=== PATIENT | female | born 1955 ===

== ENCOUNTER 2020-10-11 09:00 | Inpatient (IN) | payer OTHER ==
[~2020-10-11] VITALS: Ht 149.9 cm; Wt 68.0 kg
[2020-10-11] MEDS ORDERED: ZESTRIL40 M1 PO (10:18)
[2020-10-11] MEDS ORDERED: TRENTAL PO (10:19)
[2020-10-11] MEDS ORDERED: NORVASC5 MG PO (10:19)
[2020-10-11] MEDS ORDERED: LIPITOR40 MG PO (10:19)
[2020-10-19] MEDS ORDERED: PENTOXIFYLLINE400 MG PO (08:06)
[2020-10-20] MEDS ORDERED: ELIQUIS2.5 MG PO (12:48)
[2020-10-20] MEDS ORDERED: DUI500 PO (12:48)
[2020-10-20] MEDS ORDERED: PERCOCET 5-3251 EACH PO (12:48)
== END 2020-10-20 18:40 | DRG 470 ==
LOC: O/R 10-18 05:19 → SURH 10-18 05:19 → O/R 10-18 09:00 → SURH 10-18 10:05 → O/R 10-18 19:00 → SURH 10-20 18:40
PROVIDERS: ADMIT Orthopaedic Surgery; ATTEND Orthopaedic Surgery
PROC: 0SRC0J9 Replacement of Right Knee Joint with Synthetic Substitute, Cemented, Open Approach (ICD-10-PCS; principal; 2020-10-18 19:00)
DX: M17.11 Unilateral primary osteoarthritis, right knee (principal); D62 Acute posthemorrhagic anemia; I10 Essential (primary) hypertension

== ENCOUNTER 2024-02-04 07:30 | Inpatient (IN) | payer OTHER ==
[~2024-02-04 07:30] MED LIST: DUI500 PO; ELIQUIS2.5 MG PO; LIPITOR40 MG PO; NORVASC5 MG PO; PENTOXIFYLLINE400 MG PO; PERCOCET 5-3251 EACH PO; TRENTAL PO; ZESTRIL40 M1 PO
[2024-02-04 08:35] LABS: HEMATOCRIT 39.1 % (36.0-45.00); HEMOGLOBIN 12.9 g/dL (12.0-15.00); MEAN CORPUSCULAR HGB CONC 32.9 g/dl (32.0-36.0); PLATELET COUNT 239 K/uL (150-450); RED BLOOD COUNT 4.59 M/uL (4.00-6.00); RED CELL DISTRIBUTION WIDTH 14.4 % (11.5-14.5)
[2024-02-04 08:47] LABS: PH,URINE 6.5 (5.0-8.0); URINE APPEARANCE Clear; URINE BILIRRUBIN Negative (NEGATIVE); URINE BLOOD Negative; URINE COLOR Yellow; URINE GLUCOSE Negative (NEGATIVE); URINE KETONE Negative (NEGATIVE); URINE LEUKOCYTE Negative; URINE NITRATE Negative; URINE PROTEIN Negative (NEGATIVE); URINE UROBILINOGEN 0.2 E.U./dl
[2024-02-04 08:48] LABS: URINE BACTERIA 8.8 uL (0.0-1933); URINE EPITHELIAL CELLS 1.9 uL (0.0-38.8); URINE RBC 2.1 uL (0.0-20.8); URINE WBC 2.1 uL (0.0-23.2)
[2024-02-04 09:15] LABS: INR 0.94; PARTIAL THROMBOPLASTIN TIME 26.7 SECONDS (22.0-34.0); PROTHROMBIN TIME 10.3 SECONDS (9.0-11.5)
[2024-02-04 09:22] LABS: ALBUMIN 4.2 gm/dL (3.4-5.0); BILIRUBIN TOTAL 0.9 mg/dL (0.3-1.2); CALCIUM 9.2 mg/dL (8.5-10.1); CREATININE SERUM 0.54 mg/dL (0.55-1.02); GFR 112.61; GLOBULINA 3.4 G/DL (2.4-3.5); POTASSIUM 4.99 mEq/L (3.5-5.1); TOTAL PROTEIN 7.6 gm/dL (6.4-8.2)
[2024-02-11] MEDS ORDERED: CEFAZOLIN SODIUM 1,000 MG VIAL ONE ×2 (06:17→07:11)
[2024-02-11] MEDS ORDERED: KETOROLAC TROMETHAMINE 30 MG VIAL ONE (07:09)
[2024-02-11] MEDS ORDERED: POVIDONE-IODINE 118 ML BOTT TOP ONE (07:10)
[2024-02-11] MEDS ORDERED: LIDOCAINE HCL 1%/EPINEPHRINE 20ML VIAL IJ ONE (07:10)
[2024-02-11] MEDS ORDERED: BUPIVACAINE HCL/Mpf 0.5% 10ML VIAL ONE (07:10)
[2024-02-11] MEDS ORDERED: TRANEXAMIC ACID 100MG/1ML (1000MG) AMPUL IV ONE ×2 (07:11→10:15)
[2024-02-11] MEDS ORDERED: MORPHINE SULFATE 4 MG/ML CARTRIDGE IV PRN (09:45)
[2024-02-11] MEDS ORDERED: OxyCODONE HCL 5 MG TABLET (ROXICODONE) PO PRN (09:45)
[2024-02-11] MEDS ORDERED: ONDANSETRON HCL 2 MG/ML VIAL IV PRN (09:45)
[2024-02-11] MEDS ORDERED: SODIUM CHLORIDE 0.45 % 1,000 ML IV SCH (09:45)
[2024-02-11] MEDS ORDERED: MORPHINE SULFATE 4 MG/ML CARTRIDGE IV ONE (10:15)
[2024-02-11] MEDS ORDERED: MORPHINE SULFATE 4 MG/ML VIAL IV ONE ×2 (11:00→11:30)
[2024-02-11] MEDS ORDERED: ACETAMINOPHEN 500 MG GEL..CAP PO SCH (12:00)
[2024-02-11] MEDS ORDERED: APIXABAN 2.5 MG TABLET PO SCH (17:00)
[2024-02-11] MEDS ORDERED: GABAPENTIN 300 MG CAPSULE PO SCH (17:00)
[2024-02-11] MEDS ORDERED: CEFAZOLIN SODIUM 1,000 MG VIAL IV SCH (17:00)
[2024-02-12 06:51] LABS: HEMATOCRIT 34.8 % (36.0-45.00); HEMOGLOBIN 11.5 g/dL (12.0-15.00); MEAN CELL VOLUME 84.8 fL (80.00-100.00); MEAN CORPUSCULAR HEMOGLOBIN 28.1 pg (27.00-32.0); MEAN CORPUSCULAR HGB CONC 33.1 g/dl (32.0-36.0); PLATELET COUNT 194 K/uL (150-450); RED BLOOD COUNT 4.11 M/uL (4.00-6.00); RED CELL DISTRIBUTION WIDTH 14.2 % (11.5-14.5)
[2024-02-12] MEDS ORDERED: SENNOSIDES 1 TAB TABLET PO SCH (09:00)
[2024-02-12] MEDS ORDERED: DUI500 PO (09:39)
[2024-02-12] MEDS ORDERED: PERCOCET 5-3251 EACH PO (09:39)
[2024-02-12] MEDS ORDERED: ELIQUIS2.5 MG PO (09:41)
[2024-02-12] MEDS ORDERED: ENALAPRILAT DIHYDRATE 1.25 MG/ML VIAL IV PRN (13:00)
[2024-02-12] MEDS ORDERED: LISINOPRIL 40 MG TABLET PO ONE (14:00)
[2024-02-12] MEDS ORDERED: VITAMIN B COMPLEX 1 EACH PO SCH (17:46)
[2024-02-12] MEDS ORDERED: SOD FERRIC GLUC COMPLX/SUCROSE 62.5 MG/5 ML AMPUL IV SCH (17:46)
[2024-02-12] MEDS ORDERED: Cyanocobalamin/Mecobalamin 1 TAB.SL SL SCH (17:46)
[2024-02-13] MEDS ORDERED: LISINOPRIL 40 MG TABLET PO SCH (09:00)
[2024-02-13] MEDS ORDERED: ATORVASTATIN CALCIUM 40 MG TABLET PO SCH (09:00)
[2024-02-13] MEDS ORDERED: IRON FUM,PS/FOLIC ACID/VITC/B3 1 CAP CAPSULE PO SCH (09:00)
[2024-02-13] MEDS ORDERED: AMLODIPINE BESYLATE 5 MG TABLET PO SCH ×2 (09:00→21:00)
[2024-02-13 10:01] LABS: HEMATOCRIT 34.6 % (36.0-45.00); HEMOGLOBIN 11.2 g/dL (12.0-15.00); MEAN CELL VOLUME 84.9 fL (80.00-100.00); MEAN CORPUSCULAR HEMOGLOBIN 27.5 pg (27.00-32.0); MEAN CORPUSCULAR HGB CONC 32.4 g/dl (32.0-36.0); PLATELET COUNT 210 K/uL (150-450); RED BLOOD COUNT 4.08 M/uL (4.00-6.00); RED CELL DISTRIBUTION WIDTH 14.1 % (11.5-14.5)
== END 2024-02-13 16:01 | disposition home health service (06) | DRG 470 ==
LOC: O/R 02-11 05:19 → SURH 02-11 07:30 → O/R 02-11 10:47 → OB/GYN 02-11 11:33 → SURH 02-11 16:15 → OB/GYN 02-13 16:01
PROVIDERS: ADMIT Orthopaedic Surgery; ATTEND Orthopaedic Surgery
PROC: 0MNP0ZZ Release Left Knee Bursa and Ligament, Open Approach (ICD-10-PCS; 2024-02-11)
PROC: 0SUD07Z Supplement Left Knee Joint with Autologous Tissue Substitute, Open Approach (ICD-10-PCS; 2024-02-11)
PROC: 0SRD0J9 Replacement of Left Knee Joint with Synthetic Substitute, Cemented, Open Approach (ICD-10-PCS; principal; 2024-02-11 16:15)
DX: M17.12 Unilateral primary osteoarthritis, left knee (principal); M22.12 Recurrent subluxation of patella, left knee